=== PATIENT | female | born 1945 | race Caucasian/White ===

== ENCOUNTER 2016-08-17 14:13 | Emergency (ER) | payer MEDICARE, MEDICAID ==
[~2016-08-17] VITALS: Ht 167.6 cm; Wt 73.9 kg
[~2016-08-17 14:13] MED LIST: CITA10TA4 PO; LEVO50TA5 PO; SIMV10TA3 PO; TRAZ50TA18 PO
[2016-08-17] MEDS ORDERED: SODIUM CHLORIDE FLUSH 10ML SYR IVF ONE (15:00)
[2016-08-17] MEDS ORDERED: SODIUM CHLORIDE 0.9% 1,000ML IVBOLUS ONE (15:00)
[2016-08-17 15:39] LABS: BLOOD UREA NITROGEN 16 mg/dL (7-18)
[2016-08-17 15:44] LABS: IS PT STATUS REG ER OR PRE ER? YES
[2016-08-17] MEDS ORDERED: LEVOFLOXACIN/PMX 750MG/150ML 150 ML IVPB ONE (17:30)
[2016-08-17] MEDS ORDERED: LEVOFLOXACIN/PMX 750MG/150ML 150 ML ONE (17:30)
[2016-08-17 17:45] VITALS: BP 119/59
== END 2016-08-17 19:35 | disposition home or self-care (01) ==
LOC: ED 17:30
DX: J18.0 Bronchopneumonia, unspecified organism (principal)
CPT/HCPCS: 36415; 71020; 71260; 80048; 82040; 83605; 84484; 85025; 87040; 93005; 96365; 96366; 99285; J1956; J7030

== ENCOUNTER → 2016-11-02 | Outpatient (CLI) | payer MEDICARE, MEDICAID ==
[~2016-11-02] MED LIST changes: +REGADENOSON 0.4 MG/5 ML SYRINGE ONE
== END | disposition home or self-care (01) ==
LOC: CFH 06:47
PROVIDERS: ATTEND Internal Medicine Cardiovascular Disease
DX: I34.1 Nonrheumatic mitral (valve) prolapse (principal); I10 Essential (primary) hypertension; R00.2 Palpitations; R55 Syncope and collapse
CPT/HCPCS: 78452; 93017; 93306; A9502; J2785

== ENCOUNTER → 2018-02-19 | Outpatient (CLI) | payer MEDICARE, MEDICAID ==
[~2018-02-19] MED LIST changes: -REGADENOSON 0.4 MG/5 ML SYRINGE ONE; -TRAZ50TA18 PO; +TRAZ50TA66 PO
== END | disposition home or self-care (01) ==
LOC: CFH 12:08
PROVIDERS: ATTEND Family Medicine
DX: N60.01 Solitary cyst of right breast (principal); N63.11 Unspecified lump in the right breast, upper outer quadrant
CPT/HCPCS: 77065

== ENCOUNTER → 2018-06-28 | Outpatient (CLI) | payer MEDICARE, MEDICAID | END | disposition home or self-care (01) | LOC: CVU 06:43 → EDSTATUS 07:00 | PROVIDERS: ATTEND Internal Medicine Cardiovascular Disease | DX: I08.1 Rheumatic disorders of both mitral and tricuspid valves (principal); I10 Essential (primary) hypertension; E78.5 Hyperlipidemia, unspecified | CPT/HCPCS: 0399T; 93306 ==

== ENCOUNTER 2019-03-07 08:56 | Outpatient (CLI) | payer MEDICARE, MEDICAID ==
[~2019-03-07 08:56] MED LIST changes: +SIMV10TA18 PO; -SIMV10TA3 PO
== END 2019-03-07 23:59 | disposition home or self-care (01) ==
LOC: CFH 08:56
PROVIDERS: ATTEND Family Medicine
DX: Z12.31 Encounter for screening mammogram for malignant neoplasm of breast (principal); Z13.820 Encounter for screening for osteoporosis; M85.88 Other specified disorders of bone density and structure, other site; N60.01 Solitary cyst of right breast; Z78.0 Asymptomatic menopausal state
CPT/HCPCS: 76641; 77063; 77067; 77080

== ENCOUNTER → 2019-03-27 | Outpatient (CLI) | payer MEDICARE, MEDICAID | END | disposition home or self-care (01) | LOC: CFH 12:53 | PROVIDERS: ATTEND Family Medicine | DX: N63.21 Unspecified lump in the left breast, upper outer quadrant (principal); N64.89 Other specified disorders of breast; R92.8 Other abnormal and inconclusive findings on diagnostic imaging of breast | CPT/HCPCS: 77065 ==

== ENCOUNTER → 2019-04-04 | Outpatient (CLI) | payer MEDICARE, MEDICAID ==
[~2019-04-04] MED LIST changes: +LIDOCAINE 1%, 20ML ONE; +LIDOCAINE 1%-EPI 1:100K, 20ML ONE; +SODIUM BICARBONATE 4.2%, 5ML ONE
== END | disposition home or self-care (01) ==
LOC: CFH 11:41
PROVIDERS: ATTEND Family Medicine
DX: N63.21 Unspecified lump in the left breast, upper outer quadrant (principal); C50.412 Malignant neoplasm of upper-outer quadrant of left female breast
CPT/HCPCS: 19083; 77065; 88305; 88360; J3490; 19285

== ENCOUNTER 2019-04-22 07:00 | Day surgery (SDC) | payer MEDICARE, MEDICAID ==
[~2019-04-22] VITALS: Ht 167.6 cm; Wt 79.1 kg
[~2019-04-22 07:00] MED LIST changes: -LIDOCAINE 1%, 20ML ONE; -LIDOCAINE 1%-EPI 1:100K, 20ML ONE; -SODIUM BICARBONATE 4.2%, 5ML ONE
[2019-04-22] MEDS ORDERED: LACTATED RINGERS 1,000 ML IV SCH (07:48)
[2019-04-22] MEDS ORDERED: VIT B PO (07:58)
[2019-04-22] MEDS ORDERED: VIT D3 PO (07:58)
[2019-04-22] MEDS ORDERED: VIT C PO (07:58)
[2019-04-22] MEDS ORDERED: METO25TA35 PO (07:58)
[2019-04-22] MEDS ORDERED: LIDOCAINE-MPF 1%, 2ML INFIL ONE (08:00)
[2019-04-22 08:10] VITALS: BP 127/85
[2019-04-22] MEDS ORDERED: ISOSULFAN BLUE 10 MG/ML, 5ML IV ONE (10:03)
[2019-04-22] MEDS ORDERED: FENTANYL PF 250 MCG/5ML ONE (10:06)
[2019-04-22] MEDS ORDERED: MIDAZOLAM 1 MG/ML, 2ML ONE (10:06)
[2019-04-22] MEDS ORDERED: PROPOFOL 10 MG/ML, 20ML ONE (10:07)
[2019-04-22] MEDS ORDERED: SUCCINYLCHOLINE 20 MG/ML, 10ML ONE (10:08)
[2019-04-22] MEDS ORDERED: ROCURONIUM 10MG/ML,5ML ONE (10:08)
[2019-04-22] MEDS ORDERED: ONDANSETRON 2MG/ML, 2ML ONE (10:09)
[2019-04-22] MEDS ORDERED: DEXAMETHASONE 4 MG/ML, 1ML ONE (10:09)
[2019-04-22] MEDS ORDERED: CEFAZOLIN 1,000 MG ONE (10:20)
[2019-04-22] MEDS ORDERED: BUPIVACAINE/PF-EPI 0.5% 1:200K INFIL ONE (10:50)
[2019-04-22] MEDS ORDERED: ACETAMINOPHEN 650 MG/20.3 ML UDC ONE (11:20)
[2019-04-22] MEDS ORDERED: DIAZEPAM 5 MG/ML, 2ML IVPush PRN (11:30)
[2019-04-22] MEDS ORDERED: FENTANYL PF 100 MCG/2ML IV PRN (11:30)
[2019-04-22] MEDS ORDERED: ACETAMINOPHEN 325 MG TABLET PO PRN (11:30)
[2019-04-22] MEDS ORDERED: PROMETHAZINE 25 MG SUPP PR PRN (11:30)
[2019-04-22] MEDS ORDERED: HALOPERIDOL 5 MG/ML IV PRN (11:30)
[2019-04-22] MEDS ORDERED: MEPERIDINE/PF 25MG/ML,1ML IVPush PRN (11:30)
[2019-04-22] MEDS ORDERED: LABETALOL 5MG/ML, 20ML IV PRN (11:30)
[2019-04-22] MEDS ORDERED: MIDAZOLAM 1 MG/ML, 2ML IV PRN (11:30)
[2019-04-22] MEDS ORDERED: EPHEDRINE 50 MG/ML, 1ML IVPush PRN (11:30)
[2019-04-22] MEDS ORDERED: hydrALAzine 20 MG/ML, 1ML IV PRN (11:30)
[2019-04-22] MEDS ORDERED: HYDROmorphone 2 MG/ML, 1ML IVPush PRN (11:30)
[2019-04-22] MEDS ORDERED: ALBUTEROL SULFATE 2.5 MG/3 ML NPPB PRN (11:30)
[2019-04-22] MEDS ORDERED: ONDANSETRON 2MG/ML, 2ML IV PRN (11:30)
[2019-04-22] MEDS ORDERED: ONDANSETRON ODT 8 MG PO PRN (11:30)
[2019-04-22] MEDS: OXYcodone 5 MG/5 ML ORAL.SOL UDC PO PRN ×2 (12:58→13:34)
== END 2019-04-22 17:25 | disposition home or self-care (01) ==
LOC: OUT 07:00 → EDSTATUS 14:30 → OUT 17:25
PROVIDERS: ATTEND Surgery
DX: C50.412 Malignant neoplasm of upper-outer quadrant of left female breast (principal); E78.00 Pure hypercholesterolemia, unspecified; E03.9 Hypothyroidism, unspecified; Z17.0 Estrogen receptor positive status [ER+]; Z79.890 Hormone replacement therapy; Z79.899 Other long term (current) drug therapy; Z98.890 Other specified postprocedural states; Z82.49 Family history of ischemic heart disease and other diseases of the circulatory system; Z80.3 Family history of malignant neoplasm of breast
CPT/HCPCS: 19125; 38525; 38792; 76098; 88307; 93005; A9541; J0330; J0690; J1100; J2250; J2405; J2704; J3010; J7120

== ENCOUNTER 2019-05-06 07:59 | Outpatient (CLI) | payer MEDICARE, MEDICAID ==
[~2019-05-06 07:59] MED LIST changes: +METO25TA35 PO; +VIT B PO; +VIT C PO; +VIT D3 PO
== END 2019-05-06 23:59 | disposition home or self-care (01) ==
LOC: ROC 07:59
PROVIDERS: ATTEND Radiology Radiation Oncology
DX: C50.212 Malignant neoplasm of upper-inner quadrant of left female breast (principal)
CPT/HCPCS: G0463

== ENCOUNTER 2019-07-08 11:32 | Outpatient (CLI) | payer MEDICARE, MEDICAID ==
[2019-07-08] MEDS ORDERED: REGADENOSON 0.4 MG/5 ML SYRINGE ONE (13:23)
== END 2019-07-08 23:59 | disposition home or self-care (01) ==
LOC: CFH 11:32
PROVIDERS: ATTEND Internal Medicine Cardiovascular Disease
DX: I21.29 ST elevation (STEMI) myocardial infarction involving other sites (principal); I44.7 Left bundle-branch block, unspecified; I42.9 Cardiomyopathy, unspecified; I10 Essential (primary) hypertension
CPT/HCPCS: 78452; 93017; A9502; J2785

== ENCOUNTER → 2019-12-30 | Outpatient (CLI) | payer MEDICARE, MEDICAID | END | disposition home or self-care (01) | LOC: CFH 14:45 | PROVIDERS: ATTEND Internal Medicine Hematology & Oncology | DX: C50.412 Malignant neoplasm of upper-outer quadrant of left female breast (principal) | CPT/HCPCS: 93306 ==

== ENCOUNTER → 2020-01-28 | Outpatient (CLI) | payer MEDICARE, MEDICAID | END | disposition home or self-care (01) | LOC: CVU 07:05 | PROVIDERS: ATTEND Internal Medicine Cardiovascular Disease | DX: I08.0 Rheumatic disorders of both mitral and aortic valves (principal); I42.9 Cardiomyopathy, unspecified | CPT/HCPCS: 93306 ==

== ENCOUNTER → 2020-03-16 | Outpatient (CLI) | payer MEDICARE, MEDICAID | END | disposition home or self-care (01) | LOC: CVU 15:07 | PROVIDERS: ATTEND Internal Medicine Hematology & Oncology | DX: C50.412 Malignant neoplasm of upper-outer quadrant of left female breast (principal); I08.1 Rheumatic disorders of both mitral and tricuspid valves | CPT/HCPCS: 93306; 93356 ==

== ENCOUNTER 2020-04-20 16:01 | Observation (INO) | payer MEDICARE, MEDICAID ==
[~2020-04-20] VITALS: Ht 167.6 cm; Wt 79.1 kg
--- NOTE | 2020-04-20 16:13 | NUR ---
Note undone in EDM - 04/20/20 at 1640 by JOAO 74 YO F IMELDA W/ C/O CP AND SOB THAT STATED THIS AFTERNOON. PT WAS AT URGENT CARE AND WAS SEND TO ED FOR CARDIC WORK UP. PER REPORT FROM EMS AND PATIENT, PATIENT HAS A CARDIC HISTOORY AND SEES CARDOLOGY OP. PATIENT HOOKED TO ALL MONITORS, EKG DONE AND GIVEN TO PROVIDER. NADN. SAMMI WILL CLOSELY MONITOR.
--- NOTE | 2020-04-20 16:13 | NUR ---
74 YO F BIB W/ C/O CP AND SOB THAT STARTED THIS AFTERNOON. PT WAS AT URGENT CARE AND WAS SENT TO ED FOR CARDIC WORK UP. PER REPORT FROM EMS AND PATIENT, PATIENT HAS A CARDIC HISTOORY AND SEES CARDOLOGY OP. PATIENT HOOKED TO ALL MONITORS, EKG DONE AND GIVEN TO PROVIDER. DYLON CHAPA. WILL CLOSELY MONITOR.
[2020-04-20] MEDS ORDERED: ASPIRIN 81 MG TABLET CHEW PO ONE (17:00)
[2020-04-20] MEDS ORDERED: SODIUM CHLORIDE FLUSH 10ML SYR IVF ONE (17:00)
[2020-04-20] MEDS ORDERED: ASPIRIN 81 MG TABLET CHEW ONE ×2 (17:10→17:17)
[2020-04-20 17:15] LABS: BASOPHILS % (AUTO) 1 % (0-1); EOSINOPHILS % (AUTO) 1 % (1-7); LYMPHOCYTES % (AUTO) 30 % (22-44); MEAN CORPUSCULAR HEMOGLOBIN 31.4 pg (27.0-34.8); MEAN CORPUSCULAR HGB CONC 33.8 g/dL (32.4-35.8); MEAN PLATELET VOLUME 7.7 fL (7.4-10.4); MONOCYTES % (AUTO) 6 % (2-9); NEUTROPHILS % (AUTO) 62 % (42-75); PLATELET COUNT 213 x10^3/uL (130-400); RED BLOOD COUNT 4.06 x10^6/uL (3.82-5.3); RED CELL DISTRIBUTION WIDTH 13.6 % (9.6-15.2)
--- NOTE | 2020-04-20 17:15 | NUR ---
PATIENT MEDICATED BY EMAR. SILVIA AT BEDSIDE. NADN. CHAPA.
[2020-04-20 17:16] LABS: MD NO
[2020-04-20 17:27] LABS: ALBUMIN 3.6 g/dL (3.4-5.0); ANION GAP 5 mmol/L (5-15); CALCIUM 8.9 mg/dL (8.5-10.1); CHLORIDE 110 mmol/L (98-107); CREATININE 0.95 mg/dL (0.55-1.02)
[2020-04-20 17:31] LABS: TROPONIN I < 0.015 ng/mL (0.000-0.045)
--- NOTE | 2020-04-20 18:42 | NUR ---
PATIENT RESTING IN BED, DYLON CHAPA. DAUGHTER AT BEDSIDE.
--- NOTE | 2020-04-20 18:51 | NUR ---
report given to Sonu
[2020-04-20] MEDS ORDERED: SODIUM CHLORIDE FLUSH 10ML SYR IVF PRN (19:00)
--- NOTE | 2020-04-20 19:00 | NUR ---
RECEIVED REPORT FROM AYUSH. PT RESTING ON GURNEY. WITH FRIEND OR FAMILY AT BEDSIDE. AWAITING TO BE ADMITTED. PT HAS NO PAIN.
--- NOTE | 2020-04-20 19:27 | NUR ---
REPORT GIVEN TO FARHAD LEMONS. FLOOR READY FOR PT. TRANSPORT.
[2020-04-20 19:46] VITALS: BP 104/56
[2020-04-20 20:10] VITALS: BP 104/56
[2020-04-20] MEDS ORDERED: DOCUSATE 100 MG CAPSULE PO PRN (22:00)
[2020-04-20] MEDS ORDERED: LIDODERM 5% PATCH TD PRN (22:00)
[2020-04-20] MEDS ORDERED: LABETALOL 5MG/ML, 20ML IVPush PRN (22:00)
[2020-04-20] MEDS ORDERED: NITROGLYCERIN 0.4 MG BOTTLE (25 TABS) SL PRN (22:00)
[2020-04-20] MEDS ORDERED: MELATONIN 5 MG TABLET PO PRN (22:00)
[2020-04-20] MEDS ORDERED: METO25TA4 PO (22:19)
[2020-04-20] MEDS ORDERED: TRAZ-96 PO (22:19)
[2020-04-20] MEDS ORDERED: VITA1CAP PO (22:19)
[2020-04-20] MEDS ORDERED: SIMV10TA18 PO (22:19)
[2020-04-20] MEDS ORDERED: LEVO75CA5 PO (22:19)
[2020-04-20] MEDS ORDERED: LOSA25TA25 PO (22:19)
[2020-04-20] MEDS ORDERED: ASCO500C10 PO (22:19)
[2020-04-20] MEDS ORDERED: CHOL10003 PO (22:19)
[2020-04-20] MEDS: HEPARIN 5,000 UNITS/ML, 1ML SQ SCH (22:55)
[2020-04-20 23:52] LABS: TROPONIN I 0.023 ng/mL (0.000-0.045)
[2020-04-21] MEDS ORDERED: TRAZODONE 50MG TABLET PO PRN
[2020-04-21 00:38] VITALS: BP 110/71
[2020-04-21 04:50] LABS: BASOPHILS % (AUTO) 1 % (0-1); EOSINOPHILS % (AUTO) 2 % (1-7); LYMPHOCYTES % (AUTO) 40 % (22-44); MEAN CORPUSCULAR HEMOGLOBIN 31.4 pg (27.0-34.8); MEAN CORPUSCULAR HGB CONC 33.8 g/dL (32.4-35.8); MEAN PLATELET VOLUME 8.1 fL (7.4-10.4); MONOCYTES % (AUTO) 8 % (2-9); NEUTROPHILS % (AUTO) 49 % (42-75); PLATELET COUNT 192 x10^3/uL (130-400); RED BLOOD COUNT 3.85 x10^6/uL (3.82-5.3); RED CELL DISTRIBUTION WIDTH 13.7 % (9.6-15.2)
[2020-04-21 04:51] LABS: MD NO
[2020-04-21 05:03] LABS: ANION GAP 4 mmol/L (5-15); CALCIUM 8.6 mg/dL (8.5-10.1); CHLORIDE 111 mmol/L (98-107); CREATININE 0.77 mg/dL (0.55-1.02)
[2020-04-21 05:14] LABS: TROPONIN I < 0.015 ng/mL (0.000-0.045)
[2020-04-21] MEDS: HEPARIN 5,000 UNITS/ML, 1ML SQ SCH (06:05)
[2020-04-21 06:46] VITALS: BP 122/80
[2020-04-21] MEDS ORDERED: ANAS1TAB49 PO (07:17)
[2020-04-21] MEDS ORDERED: SENN8.6T12 PO (08:23)
[2020-04-21] MEDS ORDERED: CHOLECALCIFEROL 1,000 UNIT TABLET PO SCH (09:00)
[2020-04-21] MEDS ORDERED: LOSARTAN 25MG TABLET PO SCH (09:00)
[2020-04-21] MEDS ORDERED: METOPROLOL TARTRATE 25 MG TAB PO SCH (09:00)
[2020-04-21] MEDS ORDERED: METO-282 PO (09:38)
[2020-04-21] MEDS ORDERED: OMEP-110 PO (12:24)
[2020-04-21] MEDS ORDERED: NITR0.4T28 SL (12:24)
[2020-04-21] MEDS ORDERED: SIMVASTATIN 10 MG TABLET PO SCH (21:00)
[2020-04-21] MEDS ORDERED: METOPROLOL SUCCINATE 25 MG TAB.ER.24H PO SCH (21:00)
[2020-04-21] MEDS ORDERED: TRAZODONE 50MG TABLET PO SCH (21:00)
[2020-04-22] MEDS ORDERED: ANASTRAZOLE 1 MG PO SCH (09:00)
== END 2020-04-21 14:35 | disposition home or self-care (01) ==
LOC: ED 18:45 → INTOOBSV 18:53 → EDIP 18:53 → ED 19:04 → 5SO 19:51 → DCLOUNGE 04-21 14:20
PROVIDERS: ADMIT Internal Medicine; ATTEND Hospitalist
DX: R07.89 Other chest pain (principal); I11.0 Hypertensive heart disease with heart failure; I50.40 Unspecified combined systolic (congestive) and diastolic (congestive) heart failure; C50.919 Malignant neoplasm of unspecified site of unspecified female breast; E78.5 Hyperlipidemia, unspecified; J45.909 Unspecified asthma, uncomplicated; E03.9 Hypothyroidism, unspecified; Z79.899 Other long term (current) drug therapy; Z90.710 Acquired absence of both cervix and uterus; Z15.01 Genetic susceptibility to malignant neoplasm of breast
CPT/HCPCS: 36415; 71045; 80048; 82040; 83735; 83880; 84100; 84443; 84484; 85025; 93005; 93306; 96372; 99285; G0378; J1644

== ENCOUNTER 2020-07-11 10:44 | Emergency (ER) | payer MEDICARE, MEDICAID ==
[~2020-07-11] VITALS: Ht 167.6 cm; Wt 81.0 kg
[~2020-07-11 10:44] MED LIST changes: +ANAS1TAB49 PO; +ASCO500C10 PO; +CHOL10003 PO; +LEVO75CA5 PO; +LOSA25TA25 PO; +METO-282 PO; +METO25TA4 PO; +NITR0.4T28 SL; +OMEP-110 PO; +SENN8.6T12 PO; +TRAZ-96 PO; +VITA1CAP PO
--- NOTE | 2020-07-11 11:30 | NUR ---
Pt states has had breast cancer and chemo causes her to have leg swelling. States that it has got worse the last month. Pt also c/o sob and weakness when active.
[2020-07-11 11:34] LABS: BASOPHILS % (AUTO) 1 % (0-1); EOSINOPHILS % (AUTO) 1 % (1-7); LYMPHOCYTES % (AUTO) 27 % (22-44); MEAN CORPUSCULAR HEMOGLOBIN 31.9 pg (27.0-34.8); MEAN CORPUSCULAR HGB CONC 34.2 g/dL (32.4-35.8); MEAN PLATELET VOLUME 7.5 fL (7.4-10.4); MONOCYTES % (AUTO) 7 % (2-9); NEUTROPHILS % (AUTO) 64 % (42-75); PLATELET COUNT 231 x10^3/uL (130-400); RED BLOOD COUNT 3.79 x10^6/uL (3.82-5.3); RED CELL DISTRIBUTION WIDTH 13.4 % (9.6-15.2)
--- NOTE | 2020-07-11 11:35 | NUR ---
PT STATES THAT SHE ALSO HAS CHEST PAIN YESTERDAY THAT LASTED 5-10 MINUTES AND WENT AWAY, MAIN CONCERN IS THE SWELLING THAT WAS WORSE YESTERDAY. PT ALSO HAS PAIN IN THE LEGS WHICH SHE TAKES IBPROFEN.
[2020-07-11 11:37] LABS: MD NO
[2020-07-11 11:42] LABS: ALANINE AMINOTRANSFERASE 29 U/L (12-78); ALBUMIN 3.4 g/dL (3.4-5.0); ANION GAP 6 mmol/L (5-15); CHLORIDE 110 mmol/L (98-107); CREATININE 0.75 mg/dL (0.55-1.02)
[2020-07-11 11:46] LABS: ALKALINE PHOSPHATASE 107 U/L (45-117); BILIRUBIN,TOTAL 0.3 mg/dL (0.2-1.0); TOTAL PROTEIN 6.5 g/dL (6.4-8.2); TROPONIN I < 0.015 ng/mL (0.000-0.045)
--- NOTE | 2020-07-11 12:26 | NUR ---
Unable to do ct exam, no IV in place
[2020-07-11] MEDS ORDERED: OMNIPAQUE 350 MG/ML, 75ML BOTTLE ONE (13:00)
--- NOTE | 2020-07-11 13:07 | NUR ---
IV ESTABLISHED AND PT TO CT
[2020-07-11 14:26] VITALS: BP 123/69
== END 2020-07-11 14:44 | disposition home or self-care (01) ==
LOC: ED 12:55
DX: I50.9 Heart failure, unspecified (principal); R06.00 Dyspnea, unspecified; I44.7 Left bundle-branch block, unspecified; J45.909 Unspecified asthma, uncomplicated; Z85.3 Personal history of malignant neoplasm of breast
CPT/HCPCS: 36415; 71045; 71275; 80053; 83880; 84484; 85025; 85379; 93005; 99285; Q9967

== ENCOUNTER 2020-09-29 09:44 | Outpatient (CLI) | payer MEDICARE, MEDICAID ==
[2020-09-29 10:07] LABS: BASOPHILS % (AUTO) 0 % (0-1); EOSINOPHILS % (AUTO) 1 % (1-7); LYMPHOCYTES % (AUTO) 26 % (22-44); MEAN CORPUSCULAR HEMOGLOBIN 31.4 pg (27.0-34.8); MEAN PLATELET VOLUME 7.4 fL (7.4-10.4); MONOCYTES % (AUTO) 7 % (2-9); NEUTROPHILS % (AUTO) 65 % (42-75); PLATELET COUNT 259 x10^3/uL (130-400); RED BLOOD COUNT 4.34 x10^6/uL (3.82-5.3); RED CELL DISTRIBUTION WIDTH 13.3 % (9.6-15.2)
[2020-09-29 10:12] LABS: ALBUMIN 3.7 g/dL (3.4-5.0); ANION GAP 5 mmol/L (5-15); CALCIUM 9.1 mg/dL (8.5-10.1); CHLORIDE 107 mmol/L (98-107)
[2020-09-29 10:22] LABS: ALANINE AMINOTRANSFERASE 29 U/L (12-78); ALKALINE PHOSPHATASE 146 U/L (45-117); BILIRUBIN,TOTAL 0.5 mg/dL (0.2-1.0); CHOL/HDL RATIO 2.7; CHOLESTEROL, TOTAL 158 mg/dL (140-239); CREATININE 0.81 mg/dL (0.55-1.02); HDL CHOL % 37 % (28-40); HDL CHOLESTEROL (DIRECT) 58 mg/dL (40-60); LDL CHOLESTEROL,CALCULATED 79 mg/dL (54-169); LDL/HDL RATIO 1.4 (0.5-3.0); T4 (THYROXINE) 11.8 mcg/dL (4.8-13.9); TOTAL PROTEIN 7.3 g/dL (6.4-8.2); TRIGLYCERIDES 105 mg/dL (50-200); VLDL CHOLESTEROL 21 mg/dL (0-25)
== END 2020-09-29 23:59 | disposition home or self-care (01) ==
LOC: LAB 09:44
PROVIDERS: ATTEND Internal Medicine Cardiovascular Disease
DX: Z51.81 Encounter for therapeutic drug level monitoring (principal); I10 Essential (primary) hypertension; E03.9 Hypothyroidism, unspecified; I42.9 Cardiomyopathy, unspecified; I44.7 Left bundle-branch block, unspecified; R07.9 Chest pain, unspecified; E78.00 Pure hypercholesterolemia, unspecified
CPT/HCPCS: 36415; 80053; 80061; 84436; 84443; 84481; 85025